=== PATIENT | female | born 1950 | race Caucasian/White ===

== ENCOUNTER 2021-08-26 05:42 | Day surgery (SDC) | payer MEDICARE ==
[~2021-08-26] VITALS: Ht 162.6 cm; Wt 42.3 kg
[2021-08-26] MEDS ORDERED: LIDOCAINE 4% 50 ML SOLUTION TP ONE (05:43)
[2021-08-26] MEDS ORDERED: BENZOCAINE 20% 50 MCG/SPRAY 57 GM TP ONE (05:43)
[2021-08-26] MEDS ORDERED: ALBUTEROL SULFATE 2.5 MG/0.5 ML NEB SOLUTION NEB ONE (05:43)
[2021-08-26] MEDS ORDERED: LIDOCAINE 2% 5 ML JELLY TP ONE (05:43)
[2021-08-26] MEDS ORDERED: SODIUM CHLORIDE 0.9% 1,000 ML IV ONE (06:30)
[2021-08-26 06:50] LABS: COVID AG,FIA SOURCE NASOPHARYNGEAL
[2021-08-26] MEDS ORDERED: FentaNYL CITRATE PF 100 MCG/2 ML VIAL ONE (08:03)
[2021-08-26] MEDS ORDERED: MIDAZOLAM HCL 5 MG/ML VIAL ONE (08:03)
[2021-08-26] MEDS ORDERED: AUD NEB (08:23)
[2021-08-26] MEDS ORDERED: METH-387 PO (08:23)
[2021-08-26] MEDS ORDERED: MONT-35 PO (08:23)
[2021-08-26] MEDS ORDERED: MENT118G TP (08:23)
[2021-08-26] MEDS ORDERED: APIX2.5T PO (08:23)
[2021-08-26] MEDS ORDERED: FAMO20 PO (08:23)
[2021-08-26] MEDS ORDERED: METO25 PO (08:23)
[2021-08-26] MEDS ORDERED: PRAV40TA4 PO (08:23)
[2021-08-26] MEDS ORDERED: CHOL500013 PO (08:23)
[2021-08-26] MEDS ORDERED: DICL100G51 TP (08:23)
[2021-08-26] MEDS ORDERED: FLUT1BLS15 IH (08:23)
[2021-08-26] MEDS ORDERED: IBAN150T21 PO (08:23)
[2021-08-26] MEDS ORDERED: MethylPREDNISolone SOD SUCC 125 MG/2 ML VIAL IVP ONE (09:15)
[2021-08-26] MEDS ORDERED: MethylPREDNISolone SOD SUCC 125 MG/2 ML VIAL ONE (09:51)
[2021-08-26] MEDS ORDERED: OXYGEN THERAPY IH SCH (20:00)
== END 2021-08-26 14:10 | disposition home or self-care (01) ==
LOC: SURGERY 05:42
PROVIDERS: ATTEND Internal Medicine Critical Care Medicine
DX: J38.4 Edema of larynx (principal); B37.0 Candidal stomatitis; J98.8 Other specified respiratory disorders; I10 Essential (primary) hypertension; Z79.899 Other long term (current) drug therapy; Z98.890 Other specified postprocedural states
CPT/HCPCS: 31623; 31624; 71045; 87015; 87070; 87101; 87206; 87220; 87426; 88112; 88184; 88185; 88312; C9803; J2250; J2930; J3010; J7613; Z7610